=== PATIENT | female | born 1970 | race Caucasian/White ===

== ENCOUNTER 2017-01-06 19:19 | Emergency (ER) | payer SELFPAY ==
[2017-01-06] MEDS ORDERED: Sodium Chloride 0.9% 1,000 ML IV ONE (20:59)
--- NOTE | 2017-01-06 21:04 | ED Physician Chart ---
Chief Complaint/HPI - Patient Information Date Seen:: 01/06/17 Time Seen:: 21:00 Chief Complaint:: abdominal pain History of Present Illness:: This patient is here for an abdominal pain which began at 2 AM. She said is a moderate burning pain which is in the epigastric area. She has had nausea all day and has vomited at least 8 times. Emesis was not bloody. Patient felt warm at home but did not notice a fever. However fever was noted on ED arrival. No constipation or diarrhea. Patient's only abdominal surgical history is for hernia repairs. Patient had gallstones approximately 10 years ago that were treated by laser and removed. she still has her gallbladder. no urinary change. no back pain. no leg pains. Allergies:: Allergies Allergy/AdvReac Type Severity Reaction Status Date / Time No Known Allergies Allergy Verified 01/06/17 20:47 Vitals:: Vital Signs - 8 hr 01/06/17 20:00 Temp 100.4 F HR 80 RR 18 BP 117/77 O2 Sat % 96 Historian:: Patient Review of Systems - Review of Systems General/Constitutional: Fever, No chills, No weight loss, No weakness, No diaphoresis, No edema, No loss of appetite Skin: No skin lesions, No rash, No bruising Head: No headache, No light-headedness Eyes: No loss of vision, No pain, No diplopia ENT: No earache, No nasal drainage, No sore throat, No tinnitus Neck: No neck pain, No swelling, No thyromegaly, No stiffness, No mass noted Cardio Vascular: No chest pain, No palpitations, No PND, No orthopnea, No edema Pulmonary: No SOB, No cough, No sputum, No wheezing GI: Nausea, Vomiting, No diarrhea, Pain, No melena, No hematochezia, No constipation, No hematemesis G/U: No dysuria, No frequency, No hematuria Applied Behavior Specialist: No vaginal discharge, No abnormal vaginal bleed Musculoskeletal: No bone or joint pain, No back pain, No muscle pain Endocrine: No polyuria, No polydipsia Psychiatric: No prior psych history, No depression, No anxiety, No suicidal ideation Hematopoietic: No bruising, No lymphadenopathy Allergic/Immuno: No urticaria, No angioedema Neurological: No syncope, No focal symptoms, No weakness, No paresthesia, No headache, No seizure, No dizziness, No confusion, No vertigo Past Medical History - Past Medical History Past Medical History: HTN, DM Social History: No Alcohol Medication: Reviewed Family Medical History - Family Member Mother History Unknown: Yes Ethnicity: Living Status: Still Living Hx Family Coronary Artery Disease: Yes Hx Family Hypertension: Yes Hx Family Diabetes: Yes Physical Exam - Physical Examination General/Constitutional: Awake, Well-developed, well-nourished, Alert, No distress, GCS 15, Non-toxic appearing, Ambulatory Other Gen/Cons comments:: nontoxic obese female ..no sev distress. alert/ wn/wh Head: Atraumatic Eyes: Lids, conjuctiva normal, PERRL, EOMI Skin: Nl inspection, No rash, No skin lesions, No ecchymosis, Well hydrated, No lymphadenopathy ENMT: External ears, nose nl, Nasal exam nl, Lips, teeth, gums nl Neck: Nontender, Full ROM w/o pain, No JVD, No nuchal rigidity, No bruit, No mass, No stridor Respiratory: Nl effort/Exclusion, Clear to Auscultation, No Wheeze/Rhonchi/Rales Cardio Vascular: RRR, No murmur, gallop, rubs, NL S1 S2 GI: No organomegaly, No hernia, Normal BS's, Nondistended, No mass/bruits, No McBurney tenderness Other GI comments:: tndr at epigastrium : No CVA tenderness Extremities: No tenderness or effusion, Full ROM, normal strength in all extremities, No edema, Normal digits & nails Neuro/Psych: Alert/oriented, DTR's symmetric, Normal sensory exam, Normal motor strength, Judgement/insight normal, Mood normal, Normal gait, No focal deficits Misc: normal gait, Normal back, No paraspinal tenderness Labs/Radiology/EKG Results - Lab Results Results: Laboratory Tests 01/06/17 01/06/17 01/06/17 20:40 20:40 21:20 WBC 8.5 D RBC 4.77 Hgb 13.8 Hct 40.0 MCV 83.9 MCH 28.9 MCHC Differential 34.5 RDW 12.3 Plt Count 155 MPV 8.6 Neutrophils % 78.0 Lymphocytes % 15.4 L Monocytes % 5.8 Eosinophils % 0.6 Basophils % 0.2 Sodium Potassium Chloride Carbon Dioxide Anion Gap BUN Creatinine Est GFR ( Amer) Est GFR (Non-Af Amer) BUN/Creatinine Ratio Glucose Hemoglobin A1c % Calcium Total Bilirubin AST ALT Alkaline Phosphatase Total Protein Albumin Globulin Albumin/Globulin Ratio Lipase Urine Source CLEAN C Urine Color YELLOW Urine Clarity CLEAR Urine pH 6.0 Ur Specific [place] 1.015 Urine Protein TRACE Urine Glucose (UA) NEGATIVE Urine Ketones NEGATIVE Urine Blood TRACE Urine Nitrate NEGATIVE Urine Bilirubin NEGATIVE Urine Urobilinogen 2.0 Ur Leukocyte Esterase SMALL H Urine RBC 0-2 Urine WBC 0-2 Ur Epithelial Cells FEW Urine Bacteria FEW Urine Test NEGATIVE 01/06/17 01/06/17 21:20 21:20 WBC RBC Hgb Hct MCV MCH MCHC Differential RDW Plt Count MPV Neutrophils % Lymphocytes % Monocytes % Eosinophils % Basophils % Sodium 132 L Potassium 3.4 L Chloride 101 Carbon Dioxide 25.8 Anion Gap 8.6 BUN 13 Creatinine 0.5 L Est GFR ( Amer) > 60.0 Est GFR (Non-Af Amer) > 60.0 BUN/Creatinine Ratio 26.0 Glucose 219 H Hemoglobin A1c % 9.0 H Calcium 9.5 Total Bilirubin 1.0 AST 11 L ALT 15 Alkaline Phosphatase 41 Total Protein 7.2 Albumin 4.3 Globulin 2.9 Albumin/Globulin Ratio 1.5 Lipase 23 Urine Source Urine Color Urine Clarity Urine pH Ur Specific [place] Urine Protein Urine Glucose (UA) Urine Ketones Urine Blood Urine Nitrate Urine Bilirubin Urine Urobilinogen Ur Leukocyte Esterase Urine RBC Urine WBC Ur Epithelial Cells Urine Bacteria Urine Test - Radiology Results Results: us abd- gb wall is thick >3mm (aprox 4-5mm) and w gallstones present. no free fluid. ED Septic Shock - . Is Septic Shock (SBP<90, OR Lactate>4 mmol\L) present?: No - <6hrs of presentation: Vital Signs: Vital Signs - 8 hr 01/06/17 20:00 Temp 100.4 F HR 80 RR 18 BP 117/77 O2 Sat % 96 Reassessment (Disposition) - Reassessment Reassessment:: pt feels better after pain meds. d/w pt all results and options. pt agreeable w admit for gi workup... call placed to dr fisher. 11;20p 11;48 case abhilash Lucaswill admit. Reassessment Condition:: Improved - Diagnosis Diagnosis:: 1 abdominal pain 2 acute cholecysteitis 3 diabetic w suboptimal ctrl - Patient Disposition Admitted to:: Med/Surg Condition at Disposition:: Improved
[2017-01-06] MEDS ORDERED: Morphine Sulfate 4 mg/mL 1mL Syr ONE (21:24)
[2017-01-06 21:34] LABS: % BASOPHILS 0.2 % (0.0-2.0); % EOSINOPHILS 0.6 % (0.0-5.0); % LYMPHOCYTES 15.4 % (20.0-50.0); % MONOCYTES 5.8 % (2.0-10.0); HEMOGLOBIN 13.8 gm/dL (11.7-15.5); MEAN CELL VOLUME 83.9 fl (81-100); MEAN CORPUSCULAR HEMOGLOBIN 28.9 pg (27.0-31.0); MEAN CORPUSCULAR HGB CONC 34.5 pg (28.0-36.0); MEAN PLATELET VOLUME 8.6 fl; NEUTROPHILE ABSOLUTE 6.6 Th/cmm (1.8-8.0); PLATELET COUNT 155 Th/cmm (150-400); RED BLOOD COUNT 4.77 Mil/cmm (3.80-5.10); RED CELL DISTRIBUTION WIDTH 12.3 % (11.5-20.0)
[2017-01-06 21:36] LABS: WHITE BLOOD COUNT 8.5 Th/cmm (4.8-10.8)
[2017-01-06 21:54] LABS: ALB/GLOB RATIO 1.5 (1.0-1.8); ALKALINE PHOSPHATASE 41 U/L (34-104); ANION GAP 8.6 (7.0-16.0); BUN - UREA NITROGEN 13 mg/dL (7-25); CALCIUM SERUM 9.5 mg/dL (8.6-10.3); CARBON DIOXIDE 25.8 mEq/L (21.0-31.0); CHLORIDE 101 mEq/L (98-107); CREATININE - SERUM 0.5 mg/dL (0.6-1.2); GLUCOSE 219 mg/dL (70-105); LIPASE 23 U/L (11-82); POTASSIUM SERUM 3.4 mEq/L (3.5-5.1); SGOT 11 U/L (13-39); SGPT/ALT 15 U/L (7-52); SODIUM SERUM 132 mEq/L (136-145)
[2017-01-06 22:46] LABS: URINE COLOR YELLOW
[2017-01-06 22:47] LABS: URINE BACTERIA FEW /hpf (NONE SEEN); URINE BILIRUBIN NEGATIVE (NEGATIVE); URINE BLOOD TRACE (NEGATIVE); URINE EPITHELIAL CELLS FEW /lpf (FEW); URINE GLUCOSE (UA) NEGATIVE (NEGATIVE); URINE KETONE NEGATIVE (NEGATIVE); URINE PROTEIN TRACE mg/dL (NEGATIVE); URINE RBC 0-2 /hpf (0-5); URINE WBC 0-2 /hpf (0-5)
[2017-01-06] MEDS ORDERED: Morphine Sulfate 2 mg/mL 1mL Syr IVP PRN (23:54)
[2017-01-06] MEDS ORDERED: D5-0.45NS 1,000 ML IV SCH (23:55)
--- NOTE | 2017-01-07 00:19 | General Progress Note ---
Subjective - Review of Systems Service Date: 01/07/17 Events since last encounter: 12;13am pt notifies me she does not want to stay in hospital..despite we talked about this and agreed she would be admit 1/2 hr ago before I called Dr fisher and had admit processed. pt now says she is too worried about her mom-in-law who is home and needs her to care for her(requires care/incontinent etc)...to be admit at this time. i stongly advise pt not be doing any heavy labor and have advised she see pmd ewa. she is now signing out ama. explained to pt risks of worsening gb and explained she may return if worse .. DX is same... 1) acute GB (early), 2) poor DM ctrl 3) leaving ama condition concerning but stable plan leaving ama/ dc home Objective - Results Result Diagrams: 01/06/17 21:20 01/06/17 21:20 Recent Labs: Laboratory Last Values WBC 8.5 Th/cmm (4.8-10.8) D 01/06/17 21:20 RBC 4.77 Mil/cmm (3.80-5.10) 01/06/17 21:20 Hgb 13.8 gm/dL (11.7-15.5) 01/06/17 21:20 Hct 40.0 % (35.0-45.0) 01/06/17 21:20 MCV 83.9 fl (81-100) 01/06/17 21:20 MCH 28.9 pg (27.0-31.0) 01/06/17 21:20 MCHC Differential 34.5 pg (28.0-36.0) 01/06/17 21:20 RDW 12.3 % (11.5-20.0) 01/06/17 21:20 Plt Count 155 Th/cmm (150-400) 01/06/17 21:20 MPV 8.6 fl 01/06/17 21:20 Neutrophils % 78.0 % (40.0-80.0) 01/06/17 21:20 Lymphocytes % 15.4 % (20.0-50.0) L 01/06/17 21:20 Monocytes % 5.8 % (2.0-10.0) 01/06/17 21:20 Eosinophils % 0.6 % (0.0-5.0) 01/06/17 21:20 Basophils % 0.2 % (0.0-2.0) 01/06/17 21:20 Sodium 132 mEq/L (136-145) L 01/06/17 21:20 Potassium 3.4 mEq/L (3.5-5.1) L 01/06/17 21:20 Chloride 101 mEq/L (98-107) 01/06/17 21:20 Carbon Dioxide 25.8 mEq/L (21.0-31.0) 01/06/17 21:20 Anion Gap 8.6 (7.0-16.0) 01/06/17 21:20 BUN 13 mg/dL (7-25) 01/06/17 21:20 Creatinine 0.5 mg/dL (0.6-1.2) L 01/06/17 21:20 Est GFR ( Amer) > 60.0 ml/min (>90) 01/06/17 21:20 Est GFR (Non-Af Amer) > 60.0 ml/min 01/06/17 21:20 BUN/Creatinine Ratio 26.0 01/06/17 21:20 Glucose 219 mg/dL (70-105) H 01/06/17 21:20 Hemoglobin A1c % 9.0 % (4.0-6.0) H 01/06/17 21:20 Calcium 9.5 mg/dL (8.6-10.3) 01/06/17 21:20 Total Bilirubin 1.0 mg/dL (0.3-1.0) 01/06/17 21:20 AST 11 U/L (13-39) L 01/06/17 21:20 ALT 15 U/L (7-52) 01/06/17 21:20 Alkaline Phosphatase 41 U/L (34-104) 01/06/17 21:20 Total Protein 7.2 gm/dL (6.0-8.3) 01/06/17 21:20 Albumin 4.3 gm/dL (3.7-5.3) 01/06/17 21:20 Globulin 2.9 gm/dL 01/06/17 21:20 Albumin/Globulin Ratio 1.5 (1.0-1.8) 01/06/17 21:20 Lipase 23 U/L (11-82) 01/06/17 21:20 Urine Source CLEAN C 01/06/17 20:40 Urine Color YELLOW 01/06/17 20:40 Urine Clarity CLEAR (CLEAR) 01/06/17 20:40 Urine pH 6.0 01/06/17 20:40 Ur Specific [place] 1.015 (1.005-1.030) 01/06/17 20:40 Urine Protein TRACE mg/dL (NEGATIVE) 01/06/17 20:40 Urine Glucose (UA) NEGATIVE mg/dL (NEGATIVE) 01/06/17 20:40 Urine Ketones NEGATIVE mg/dL (NEGATIVE) 01/06/17 20:40 Urine Blood TRACE (NEGATIVE) 01/06/17 20:40 Urine Nitrate NEGATIVE (NEGATIVE) 01/06/17 20:40 Urine Bilirubin NEGATIVE (NEGATIVE) 01/06/17 20:40 Urine Urobilinogen 2.0 E.U./dL (0.2 - 1.0) 01/06/17 20:40 Ur Leukocyte Esterase SMALL (NEGATIVE) H 01/06/17 20:40 Urine RBC 0-2 /hpf (0-5) 01/06/17 20:40 Urine WBC 0-2 /hpf (0-5) 01/06/17 20:40 Ur Epithelial Cells FEW /lpf (FEW) 01/06/17 20:40 Urine Bacteria FEW /hpf (NONE SEEN) 01/06/17 20:40 Urine Test NEGATIVE 01/06/17 20:40 - Physical Exam Vitals and I&O: Vital Signs Temp 98.9 F 01/06/17 22:14 Pulse 77 01/06/17 22:14 Resp 17 01/06/17 22:14 BP 126/71 01/06/17 22:14 Pulse Ox 98 01/06/17 22:14 Intake & Output 01/06/17 01/06/17 01/07/17 06:59 18:59 06:59 Intake Total 1999 Balance 1999 Weight (lbs) 102.058 kg Intake: Intake, IV Amount 1999 Sodium Chloride 0.9% 1, 1000 000 ml @ 100 mls/hr IV . Q10H ONE Rx#:[id number] Active Medications: Current Medications Sodium Chloride (Nacl 0.9%) 1,000 mls @ 100 mls/hr IV .Q10H ONE Stop: 01/07/17 06:58 Last Infusion: 01/06/17 22:16 Dose: Infused Dextrose/Sodium Chloride (D5-0.45ns) 1,000 mls @ 75 mls/hr IV .[id number] [facility] Stop: 03/07/17 23:54 Piperacillin Sod/Tazobactam (Sod 3.375 gm/ Sodium Chloride) 50 mls @ 100 mls/ hr IV Q6HR [place] Stop: 03/08/17 00:00 Metronidazole (Flagyl) 500 mg in 100 mls @ 100 mls/hr IV Q8HR [facility] Stop: 03/08/17 04:59 Morphine Sulfate (Morphine) 4 mg IV NOW STA Stop: 01/06/17 21:00 Last Admin: 01/06/17 21:30 Dose: 4 mg Morphine Sulfate (Morphine) 2 mg IVP Q4H PRN PRN Reason: Pain (Moderate) Stop: 03/07/17 23:44 Ondansetron HCl (Zofran) 4 mg IV X1 ONE Stop: 01/06/17 21:00 Last Admin: 01/06/17 21:30 Dose: 4 mg Ondansetron HCl (Zofran) 4 mg IV Q4H PRN PRN Reason: Nausea / Vomiting Stop: 03/07/17 23:44 Pantoprazole Sodium (Protonix) 40 mg IVP DAILY [facility] Stop: 03/08/17 08:59 - Procedures Procedures: Procedures Procedure Code Date DELIVERY 35738 02/16/00 DELIVERY ONLY 85541 03/14/98 DX PROC FETUS/AMNION NEC 75.35 01/05/00 MONITORING NOS 75.34 02/16/00 NON-STRESS TEST 54954 01/05/00 INJECT/INFUSE NEC 99.29 08/08/11 LOW CERVICAL 74.1 02/16/00 MATERNITY CARE PROCEDURE 13750 02/16/00 Assessment/Plan - Problem List Patient Problems: All Active Problems Chest pain (Acute) R07.9 DIZZINESS (Acute ~04/30/16)
[2017-01-07] MEDS ORDERED: Amoxicillin/Clavulanate 500/125 Tab ONE (00:23)
[2017-01-07] MEDS ORDERED: Amoxicillin/Clavulanate 500/125 Tab PO ONE (00:30)
[2017-01-07] MEDS ORDERED: metroNIDAZOLE 500mg/NS 100mL 500 MG/100 ML BAG IV SCH (05:00)
--- NOTE | 2017-01-07 11:04 | Diagnostic Imaging Report ---
Abdominal ultrasound HISTORY: Pain The liver exhibits a homogeneous parenchyma. No focal lesions. The gallbladder is contracted. In a fasting patient, the finding may be associated with underlying gallbladder disease. If gallbladder disease is suspected, a repeat exam with the patient fasting is recommended. No biliary dilatation (common bile duct is 2.8 mm). Limited visualization of the pancreas due to bowel gas. A focal renal lesions. No hydronephrosis. No other retroperitoneal or intra-abdominal abnormalities. IMPRESSION: 1. Contracted gallbladder. In a fasting patient, the finding may reflect underlying gallbladder disease. If the patient was not fasting and gallbladder disease is suspected, a repeat exam with the patient npo recommended.
== END 2017-01-07 00:29 | disposition left against medical advice (07) ==
LOC: ER 19:19
DX: K81.0 Acute cholecystitis (principal); E11.9 Type 2 diabetes mellitus without complications; I10 Essential (primary) hypertension
CPT/HCPCS: 99285; 96361; 96374; 96375; 76700; 36415; 85025; 81001; 83036; 81025; 83690; 80053; J2405; J7030; Z7610